=== PATIENT | male | born 1960 | race Two or more races ===

== ENCOUNTER 2024-01-10 07:50 | Emergency (ER) | payer OTHER ==
[~2024-01-10] VITALS: Ht 172.7 cm; Wt 77.1 kg
[2024-01-10] MEDS ORDERED: TETANUS & DIPHTHERIA TOX,ADULT 0.5 ML VIAL IM STA (09:53)
== END 2024-01-10 10:37 | disposition home or self-care (01) ==
LOC: ER 07:51
DX: S61.052A Open bite of left thumb without damage to nail, initial encounter (principal); W54.0XXA Bitten by dog, initial encounter; Y93.9 Activity, unspecified; Y92.89 Other specified places as the place of occurrence of the external cause; Y99.9 Unspecified external cause status